=== PATIENT | male | born 2000 | race Two or more races ===

== ENCOUNTER 2022-12-03 18:08 | Emergency (ER) | payer BC ==
[~2022-12-03] VITALS: Ht 182.9 cm; Wt 74.4 kg
[2022-12-03] MEDS ORDERED: LEXAPRO5 MG PO (18:59)
== END 2022-12-03 23:22 | disposition home or self-care (01) ==
LOC: ER 18:08
DX: U07.0 Vaping-related disorder (principal)